=== PATIENT | male | born 1975 | race Caucasian/White ===

== ENCOUNTER 2018-06-22 20:11 | Emergency (ER) | payer MEDICAID ==
[~2018-06-22] VITALS: Ht 180.3 cm; Wt 83.9 kg
[~2018-06-22 20:11] MED LIST: CYCL10 PO; HYDACE5325 PO; IBUP600 PO; IBUP800 PO; METPRE4DP PO
[2018-06-22 21:09] LABS: BASOPHILS ABSOLUTE AUTO 0.05 K/mm3 (0.00-0.23); BASOPHILS PERCENT AUTO 1 % (0-2); EOSINOPHILS ABSOLUTE AUTO 0.34 K/mm3 (0.00-0.68); EOSINOPHILS PERCENT AUTO 3 % (0-6); Hemoglobin 15.3 g/dL (13.5-17.5); IMMATURE GRAN ABSOLUTE AUTO 0.02 K/mm3 (0.00-0.10); IMMATURE GRAN PERCENT AUTO 0 % (0-1); LYMPHOCYTES PERCENT AUTO 18 % (21-46); MONOCYTES ABSOLUTE AUTO 1.07 K/mm3 (0.16-1.47); MONOCYTES PERCENT AUTO 10 % (4-13); Mean Corpuscular HGB 32.4 pg (26.0-34.0); Mean Corpuscular HGB Conc 33.3 g/dL (31.5-36.5); Mean Corpuscular Volume 98 fL (80-100); Mean Platelet Volume 9.1 fL (9.1-12.4); NEUTROPHILS ABSOLUTE AUTO 6.96 K/mm3 (1.96-9.15); NEUTROPHILS PERCENT AUTO 68 % (41-73); Platelet Count 321 K/mm3 (150-400); RDW Coefficient Variation 12.3 % (11.7-14.2); RDW Standard Deviation 44.4 fL (35.1-46.3); Red Blood Cell Count 4.72 M/mm3 (4.30-5.90); White Blood Cell Count 10.24 K/mm3 (4.00-11.30)
[2018-06-22 21:27] LABS: Alanine Aminotransfer (ALT/SGP 20 U/L (12-78); Albumin, Blood 3.6 g/dL (3.4-5.0); Albumin/Globulin Ratio 0.9 (0.8-1.8); Alk Phos 112 U/L (50-136); Anion Gap 8 mmol/L (6-16); Aspartate Aminotrans (AST/SGOT 14 U/L (12-37); Bilirubin, Total 0.4 mg/dL (0.1-1.0); Blood Urea Nitrogen 10 mg/dL (8-24); Bun/Creatinine Ratio 11.9 (12.0-20.0); CO2, Blood 29 mmol/L (21-32); Calcium, Blood 8.6 mg/dL (8.5-10.1); Chloride, Blood 102 mmol/L (98-108); Creatinine, Blood 0.84 mg/dL (0.60-1.20); Globulin, Blood 3.8 g/dL (2.2-4.0); Glomerular Filtration Rate >60 (60-); Glucose, Blood 80 mg/dL (70-99); Potassium, Blood 3.8 mmol/L (3.5-5.5); Sodium, Blood 139 mmol/L (136-145); Total Protein, Blood 7.4 g/dL (6.4-8.2)
[2018-06-22] MEDS ORDERED: Norco 7.5-3251 EACH PO (23:29)
== END 2018-06-23 02:22 | disposition home or self-care (01) ==
LOC: ER 20:11
PROVIDERS: Physician Assistant
DX: C44.629 Squamous cell carcinoma of skin of left upper limb, including shoulder (principal); F17.200 Nicotine dependence, unspecified, uncomplicated
CPT/HCPCS: 36415; 80053; 83605; 85025; 96365; 96366; 96375; 99283-25; J3010; J3370; J7050

== ENCOUNTER → 2018-07-02 | Outpatient (CLI) | payer SELFPAY ==
[~2018-07-02] MED LIST changes: +Norco 7.5-3251 EACH PO
== END ==
LOC: LAB SHORT 11:44 → PLD 11:44
DX: M99.87 Other biomechanical lesions of upper extremity (principal)
CPT/HCPCS: 88305

== ENCOUNTER 2019-11-30 18:37 | Inpatient (IN) | payer SELFPAY ==
[~2019-11-30] VITALS: Ht 180.3 cm; Wt 76.9 kg
[2019-11-30] MEDS ORDERED: ERIVEDGE150 MG PO (18:52)
--- NOTE | 2019-11-30 19:31 | NUR ---
REPORT RECEIVED FROM LISS BARNEY IN ED
[2019-11-30 19:51] LABS: Hematocrit 46.2 % (37.0-53.0); Hemoglobin 15.5 g/dL (13.5-17.5); Mean Corpuscular HGB 32.2 pg (26.0-34.0); Mean Corpuscular HGB Conc 33.5 g/dL (31.5-36.5); Mean Corpuscular Volume 96 fL (80-100); Mean Platelet Volume 10.2 fL (9.1-12.4); Platelet Count 398 K/mm3 (150-400); RDW Coefficient Variation 12.4 % (11.7-14.2); RDW Standard Deviation 44.4 fL (35.1-46.3); Red Blood Cell Count 4.81 M/mm3 (4.30-5.90); White Blood Cell Count 12.11 K/mm3 (4.00-11.30)
[2019-11-30 20:06] LABS: LDL/HDL RATIO 2.5; Magnesium, Blood 2.5 mg/dL (1.6-2.4); Troponin I 0.326 ng/mL (0.000-0.040)
[2019-11-30 20:07] LABS: Alanine Aminotransfer (ALT/SGP 26 U/L (12-78); Albumin, Blood 3.9 g/dL (3.4-5.0); Alk Phos 100 U/L (50-136); Anion Gap 9 mmol/L (6-16); Aspartate Aminotrans (AST/SGOT 20 U/L (12-37); Bilirubin, Total 0.3 mg/dL (0.1-1.0); Blood Urea Nitrogen 14 mg/dL (8-24); Bun/Creatinine Ratio 9.8 (12.0-20.0); CHOL/HDL RATIO 4.3; CO2, Blood 23 mmol/L (21-32); Calcium, Blood 9.1 mg/dL (8.5-10.1); Chloride, Blood 106 mmol/L (98-108); Cholesterol 205 mg/dL (50-200); Creatinine, Blood 1.43 mg/dL (0.60-1.20); Globulin, Blood 3.8 g/dL (2.2-4.0); Glomerular Filtration Rate 57 (60-); Glucose, Blood 162 mg/dL (70-99); HDL Cholesterol 48 mg/dL (>39); Low Density Lipoprotein Chol 120 mg/dL (0-110); Potassium, Blood 3.9 mmol/L (3.5-5.5); Sodium, Blood 138 mmol/L (136-145); Total Protein, Blood 7.7 g/dL (6.4-8.2); Triglycerides 184 mg/dL (30-160); Very Low Density Lipoprot Chol 36 mg/dL (6-32)
--- NOTE | 2019-11-30 20:53 | NUR ---
DR. LEON NOTIFIED DR. LEON NOTIFIED THAT PT ADMITS TO USING METH PRIOR TO HIS HEART ATTACK AND THAT HE DRINKS 6 BEERS/DAY.
--- NOTE | 2019-11-30 21:18 | NUR ---
ASSUMPTION OF CARE: PT UP TO ICU 14 FROM [facility]. ALERT AND ORIENTED. 2 STENTS PLACED FOLLOWING STEMI. TR BAND IN PLACE ON R WRIST. PULSES STRONG, NO PAIN, SENSATION INTACT, NO HEMATOMA PRESENT. PT HAD EPISODE IN [facility] OF VTACH/VFIB AND WAS SHOCKED. VS CURRENTLY STABLE. SBP IN THE 130S,HR IN THE 80-90S. LUNG SOUNDS CLEAR, SPO2 >90% ON RA. URINATING ON OWN INTO URINAL. BILAT 18G AC IVS. INFUSING WITH NS AT 75MLS/HR AND AMIO AT 33 MLS/HR. PT REPORTS DRINKING 6 BEERS A DAY AND OCC METH USE. REPORTS LAST DRINK WAS RIGHT BEFORE COMING INTO HOSPITAL AND LAST METH USE WAS TODAY. DR LEON AWARE. AWAITING URINE SAMPLE FOR U-TOX. WILL CONTINUE TO MONITOR.
[2019-12-01 00:52] LABS: BASOPHILS ABSOLUTE AUTO 0.06 K/mm3 (0.00-0.23); BASOPHILS PERCENT AUTO 0 % (0-2); EOSINOPHILS ABSOLUTE AUTO 0.25 K/mm3 (0.00-0.68); EOSINOPHILS PERCENT AUTO 2 % (0-6); Hematocrit 44.7 % (37.0-53.0); Hemoglobin 14.9 g/dL (13.5-17.5); IMMATURE GRAN ABSOLUTE AUTO 0.03 K/mm3 (0.00-0.10); IMMATURE GRAN PERCENT AUTO 0 % (0-1); LYMPHOCYTES ABSOLUTE AUTO 2.57 K/mm3 (0.84-5.20); LYMPHOCYTES PERCENT AUTO 19 % (21-46); MONOCYTES ABSOLUTE AUTO 1.09 K/mm3 (0.16-1.47); MONOCYTES PERCENT AUTO 8 % (4-13); Mean Corpuscular HGB 32.3 pg (26.0-34.0); Mean Corpuscular HGB Conc 33.3 g/dL (31.5-36.5); Mean Corpuscular Volume 97 fL (80-100); Mean Platelet Volume 9.6 fL (9.1-12.4); NEUTROPHILS PERCENT AUTO 71 % (41-73); Platelet Count 306 K/mm3 (150-400); RDW Coefficient Variation 12.6 % (11.7-14.2); RDW Standard Deviation 45.2 fL (35.1-46.3); Red Blood Cell Count 4.61 M/mm3 (4.30-5.90)
[2019-12-01 01:19] LABS: Anion Gap 3 mmol/L (6-16); Blood Urea Nitrogen 13 mg/dL (8-24); Bun/Creatinine Ratio 12.9 (12.0-20.0); CO2, Blood 29 mmol/L (21-32); CPK Creatine Kinase 180 U/L (39-308); Calcium, Blood 8.8 mg/dL (8.5-10.1); Chloride, Blood 107 mmol/L (98-108); Creatine Kinase MB 13.3 ng/mL (0.0-3.6); Creatine Kinase MB Index 7.4 (0.0-4.0); Creatinine, Blood 1.01 mg/dL (0.60-1.20); Glomerular Filtration Rate >60 (60-); Glucose, Blood 116 mg/dL (70-99); Potassium, Blood 4.9 mmol/L (3.5-5.5); Sodium, Blood 139 mmol/L (136-145)
--- NOTE | 2019-12-01 02:37 | NUR ---
AMIO INFUSION DROPPED FROM 33.3MLS/HR TO 16.6MLS/HR.
--- NOTE | 2019-12-01 05:57 | NUR ---
TR BAND OFF AT 0545. NO HEMATOMA, NO BLEEDING, SENSATION INTACT, CAP REFILL <3 SEC, PULSE STRONG. R RADIAL COVERED WITH OPSITE. WILL CONTINUE TO MONITOR
--- NOTE | 2019-12-01 06:15 | NUR ---
SHIFT SUMMARY: NO ACUTE CHANGES T/O SHIFT. PT IN SR WITH SOME ST ELEVATIONS. HR IN THE 60S,SBP IN THE 130-140. PT IS A&O. DID NOT HAVE ANY COMPLAINTS T/O SHIFT. REMIANED ON RA WITH SPO2 >90%. R RADIAL ACCESS SITE IS C/D. TR BAND OFF AT 0545. ARM BOARD REMAINS IN PLACE. SEE PREVIOUS NOTE. PT IS AMBULATING TO COMMODE AND VOIDING ON OWN. 2 18G IVS IN [facility] AC. AMIODORONE IS INFUSING AT 16.6MLS/HR AND NS AT 75MLS/HR. WILL PASS REPORT TO ONCOMING LISS
--- NOTE | 2019-12-01 07:31 | NUR ---
ASSUMED CARE PT. ALERT AND ORIENTED THIS AM. ABLE TO REPOSITION SELF IN BED FOR COMFORT AND UP AD DANTE IN ROOM. PT. DENIES ANY CHEST PAIN OR PRESSURE THIS AM. TR BAND OFF PER MACHINE STAPLER RN AT 0545. CLEAR OPSITE IN PLACE, SITE WNL, NO HEMATOMA NO BLEEDING. ARM BOARD REMAINS IN PLACE AND ADDITIONAL INFORMATION PROVIDED REGARDING USE OF RIGHT ARM. PT VSS THIS AM. REMAINS ON AMIO GTT AT 05MG/MIN. NADN. CALL LIGHT IN REACH.
--- NOTE | 2019-12-01 08:13 | NUR ---
DR. LEON IN TO SEE PT PER ORDER AMIO GTT AND NS GTT STOPPED. PER DR. LEON DO NOT DC ORDER FOR AMIO AT THIS TIME, CONTINUE TO MONITOR PT FOR ECTOPY AND IF PT HAS INCREASED ECTOPY THEN AMIO GTT TO RESTART. PLANS FOR ECHO TODAY, AND POSSIBLE DC TO HOME DEPENDING ON ECHO RESULTS. VSS.
[2019-12-01 08:44] LABS: Creatine Kinase MB 25.3 ng/mL (0.0-3.6); Creatine Kinase MB Index 9.2 (0.0-4.0)
[2019-12-01 08:48] LABS: Troponin I 7.27 ng/mL (0.000-0.040)
[2019-12-01 13:40] LABS: Creatine Kinase MB 21.2 ng/mL (0.0-3.6); Creatine Kinase MB Index 8.4 (0.0-4.0)
[2019-12-01 13:59] LABS: Troponin I 5.28 ng/mL (0.000-0.040)
--- NOTE | 2019-12-01 16:23 | NUR ---
UPDATE PER DR. LEON PT TO STAY FOR TONIGHT AND BE DISCHARGED IN THE AM. PT FAMILY UPDATED. PT. REMAINS ALERT AND ORIENTED T/O DAY. CONTINUES TO DENY CHEST PAIN OR PRESSURE. SLEEPING MOST OF THE DAY. VSS, INDEPENDENT IN ROOM.
--- NOTE | 2019-12-01 17:01 | NUR ---
Care of pt assumed. Pt resting in bed w/o complaints watching tv.
--- NOTE | 2019-12-01 19:49 | NUR ---
ASSUMPTION OF CARE: PT CURRENTLY SLEEPING IN ROOM. ABLE TO AWAKE EASILY. PT HAS NO COMPLAINTS AT THIS TIME. IS SR, HR 60-80S, SBP IN THE 120S. OPSITE TO R RADIAL ACCESS IS C/D/I. PULSE IS STRONG. NO HEMATOMA, NO OOZING. LUNG SOUNDS CLEAR, SPO2 >90% ON RA. PT INDEPENDENT IN ROOM. ATE ALL OF DINNER. TWO IVS IN BILAT ACS. PATENT AND SL. WILL CONTINUE TO MONITOR
[2019-12-01 21:30] LABS: Creatine Kinase MB 10.8 ng/mL (0.0-3.6)
[2019-12-01 21:34] LABS: Troponin I 3.53 ng/mL (0.000-0.040)
--- NOTE | 2019-12-02 05:44 | NUR ---
SHIFT SUMMARY: NO ACUTE CHANGES T/O SHIFT. PT SLEPT MAJORITY OF SHIFT. VSS. R RADIAL ACCESS SITE DRESSING IS C/D/I. ARM BOARD REMAINS IN PLACE. WILL PASS REPORT TO ONCOMING SHIFT
[2019-12-02 05:57] LABS: Creatine Kinase MB Index 4.1 (0.0-4.0)
[2019-12-02 05:59] LABS: Troponin I 2.8 ng/mL (0.000-0.040)
[2019-12-02] MEDS ORDERED: ASPI81CH PO (08:09)
[2019-12-02] MEDS ORDERED: ATORVASTATIN CA40 MG PO (08:10)
[2019-12-02] MEDS ORDERED: CLOP75 PO (08:11)
[2019-12-02] MEDS ORDERED: LISI5 PO (08:11)
--- NOTE | 2019-12-02 09:34 | NUR ---
PT ASSESSED THIS AM AT 0720. PT AWAKE SITTING UP IN BED. PT DENIES ALL COMPLAINTS. DENIES CHEST PAIN/PRESSURE/SOB/NAUSEA. ORDERS WHERE PLACED BY DR Grace FOR PT TO BE DISCHARGED HOME. R TR BAND SITE WITH OPSITE C/D/I. AREA WNL. WRIST IMMOBILIZER ON. RX'S FAXED INTO [facility]. PT EDUCATED ON IMPORTANCE OF CONTINUING PLAVIX/ASA ORDERED. PT TO CALL DR IF HE HAS ANY DIFFICULTY OBTAINING MEDICATIONS. PT DC'D HOME IN STABLE CONDITION AT 0830. VERBAL AND WRITTEN DC INSTRUCTIONS GIVEN TO PT WITH CLEAR UNDERSTANDING.
== END 2019-12-02 08:32 | disposition home or self-care (01) | DRG 246 ==
LOC: ER 18:37 → ICUW 18:44
PROVIDERS: Emergency Medicine; ADMIT Internal Medicine Interventional Cardiology
PROC: 4A023N7 Measurement of Cardiac Sampling and Pressure, Left Heart, Percutaneous Approach (ICD-10-PCS; principal; 2019-11-30)
PROC: 027035Z Dilation of Coronary Artery, One Artery with Two Drug-eluting Intraluminal Devices, Percutaneous Approach (ICD-10-PCS; 2019-11-30)
PROC: B2111ZZ Fluoroscopy of Multiple Coronary Arteries using Low Osmolar Contrast (ICD-10-PCS; 2019-11-30)
DX: I21.09 ST elevation (STEMI) myocardial infarction involving other coronary artery of anterior wall (principal); I49.01 Ventricular fibrillation; F17.210 Nicotine dependence, cigarettes, uncomplicated; F19.21 Other psychoactive substance dependence, in remission; F10.21 Alcohol dependence, in remission; Z85.89 Personal history of malignant neoplasm of other organs and systems; E78.5 Hyperlipidemia, unspecified; R73.9 Hyperglycemia, unspecified; N18.9 Chronic kidney disease, unspecified
CPT/HCPCS: 36415; 80048; 80053; 80061; 82550; 82553; 83036; 83735; 84484; 85025; 85027; 85347; 86850; 86900; 86901; 92973; 92978; 93005; 93010; 93306; 93458; 99152; 99153; 99285-25; A9270-GY; C1725; C1753; C1757; C1769; C1874; C1887; C1894; C9606; J0282; J1644; J2250; J3010; J3246; J7030; Q9967

== ENCOUNTER 2020-02-11 01:43 | Inpatient (IN) | payer SELFPAY ==
[~2020-02-11] VITALS: Ht 182.9 cm; Wt 80.9 kg
[2020-02-11 02:01] LABS: BASOPHILS ABSOLUTE AUTO 0.03 K/mm3 (0.00-0.23); BASOPHILS PERCENT AUTO 1 % (0-2); EOSINOPHILS ABSOLUTE AUTO 0.18 K/mm3 (0.00-0.68); EOSINOPHILS PERCENT AUTO 3 % (0-6); Hematocrit 37.1 % (37.0-53.0); Hemoglobin 11.8 g/dL (13.5-17.5); IMMATURE GRAN ABSOLUTE AUTO 0.11 K/mm3 (0.00-0.10); IMMATURE GRAN PERCENT AUTO 2 % (0-1); LYMPHOCYTES ABSOLUTE AUTO 4.93 K/mm3 (0.84-5.20); LYMPHOCYTES PERCENT AUTO 75 % (21-46); MONOCYTES PERCENT AUTO 6 % (4-13); Mean Corpuscular HGB Conc 31.8 g/dL (31.5-36.5); Mean Corpuscular Volume 104 fL (80-100); Mean Platelet Volume 9.8 fL (9.1-12.4); NEUTROPHILS PERCENT AUTO 14 % (41-73); Platelet Count 228 K/mm3 (150-400); RDW Coefficient Variation 12.2 % (11.7-14.2); RDW Standard Deviation 46.6 fL (35.1-46.3); Red Blood Cell Count 3.58 M/mm3 (4.30-5.90); White Blood Cell Count 6.55 K/mm3 (4.00-11.30)
[2020-02-11 02:01] LABS: PCO2 Arterial 61.3 mmHg (35-45); PO2 Arterial 91.7 mmHg (80-100); pH Blood Arterial 7.04 (7.35-7.45)
[2020-02-11 02:05] LABS: Calcium, Ionized (POC) 1.17 mmol/L (1.10-1.46); Chloride (POC) 99 mmol/L (98-108); Creatinine (POC) 1.1 mg/dL (0.8-1.3); Glucose (ISTAT POC) 343 mg/dL (70-99); Hemoglobin (POC) 11.9 g/dL (13.5-17.5); Potassium (POC) 3.4 mmol/L (3.5-5.5); Sodium (POC) 137 mmol/L (135-148); Total CO2 (POC) 20 mmol/L (21-32)
[2020-02-11 02:21] LABS: Acetaminophen, Random 3.9 ug/mL (10.0-30.0); Alanine Aminotransfer (ALT/SGP 197 U/L (12-78); Albumin, Blood 2.6 g/dL (3.4-5.0); Alk Phos 85 U/L (50-136); Anion Gap 15 mmol/L (6-16); Aspartate Aminotrans (AST/SGOT 281 U/L (12-37); Bilirubin, Total 0.3 mg/dL (0.1-1.0); Blood Urea Nitrogen 15 mg/dL (8-24); Bun/Creatinine Ratio 14.2 (12.0-20.0); CO2, Blood 17 mmol/L (21-32); Calcium, Blood 7.5 mg/dL (8.5-10.1); Chloride, Blood 106 mmol/L (98-108); Creatinine, Blood 1.06 mg/dL (0.60-1.20); Globulin, Blood 2.7 g/dL (2.2-4.0); Glomerular Filtration Rate >60 (60-); Glucose, Blood 300 mg/dL (70-99); Potassium, Blood 3.8 mmol/L (3.5-5.5); Salicylate 1.9 mg/dL (2.8-20.0); Sodium, Blood 138 mmol/L (136-145); Total Protein, Blood 5.3 g/dL (6.4-8.2); Troponin I 0.064 ng/mL (0.000-0.040)
[2020-02-11 02:31] LABS: Ethanol (Alcohol), Blood, Med <3 mg/dL
[2020-02-11 02:32] LABS: Magnesium, Blood 2.3 mg/dL (1.6-2.4)
[2020-02-11 02:33] LABS: Source, Urine Clean Catch
[2020-02-11 02:42] LABS: Bilirubin, Urine Neg (Neg); Blood, Urine 5+ (Neg); Glucose Qualitative, Urine 4+ (Neg); Ketones, Urine Neg (Neg); Leukocyte Esterase, Urine Neg (Neg); Nitrite, Urine Neg (Neg); Protein, Urine 4+ (Neg); Specific Gravity, Urine 1.015 (1.003-1.022); Urobilinogen, Urine NORM (Normal)
[2020-02-11 02:47] LABS: Appearance, Urine Hazy (Clear); Color, Urine Yellow (P-Yellow)
[2020-02-11 02:48] LABS: Amorphous Mod (0-Heavy); Bacteria Few /hpf; Red Blood Cells, Urine 50-100 /hpf (0-2); Squamous Epithelial Cells Few /hpf (Few); White Blood Cells, Urine 0-2 /hpf (0-5)
[2020-02-11 02:52] LABS: U Amphetamine Screen DETECTED; U Barbituate Screen Not Detected; U Benzodiazapine Screen Not Detected; U Buprenorphine Screen Not Detected; U Cannabinoids Screen Not Detected; U Cocaine Screen Not Detected; U Methadone Screen Not Detected; U Methamphetamine Screen DETECTED; U Opiates Screen Not Detected; U Oxycodone Screen Not Detected; U Phencyclidine Screen Not Detected; U Propoxyphene Screen Not Detected
[2020-02-11 06:48] LABS: BASOPHILS ABSOLUTE AUTO 0.04 K/mm3 (0.00-0.23); BASOPHILS PERCENT AUTO 0 % (0-2); EOSINOPHILS ABSOLUTE AUTO 0.04 K/mm3 (0.00-0.68); EOSINOPHILS PERCENT AUTO 0 % (0-6); Hematocrit 41.3 % (37.0-53.0); Hemoglobin 13.8 g/dL (13.5-17.5); IMMATURE GRAN ABSOLUTE AUTO 0.13 K/mm3 (0.00-0.10); IMMATURE GRAN PERCENT AUTO 1 % (0-1); LYMPHOCYTES ABSOLUTE AUTO 1.84 K/mm3 (0.84-5.20); LYMPHOCYTES PERCENT AUTO 8 % (21-46); MONOCYTES PERCENT AUTO 8 % (4-13); Mean Corpuscular HGB 32.7 pg (26.0-34.0); Mean Corpuscular HGB Conc 33.4 g/dL (31.5-36.5); Mean Platelet Volume 9.5 fL (9.1-12.4); NEUTROPHILS ABSOLUTE AUTO 18.89 K/mm3 (1.96-9.15); NEUTROPHILS PERCENT AUTO 83 % (41-73); Platelet Count 324 K/mm3 (150-400); RDW Coefficient Variation 12.2 % (11.7-14.2); RDW Standard Deviation 44.2 fL (35.1-46.3); Red Blood Cell Count 4.22 M/mm3 (4.30-5.90); White Blood Cell Count 22.64 K/mm3 (4.00-11.30)
--- NOTE | 2020-02-11 07:00 | NUR ---
CARE ASSUMED 0700 PT INTUBATED AND SEDATED. PROPOFOL @ 60 INFUSING IN LEFT FOREARM. AC 14,500,50%, 5, SPO2 97%. LUNGS ARE CLEAR BILATERALLY. PT RESPONDS TO NOXIOUS STIMULI, SCOTT. VITAL STABLE. BODY TEMP 34.1. PT RECEIVING COOLING MEASURES WITH THERMAGUARD WITH GOAL TEMPERATURE OF 34.0. VIA RIGHT GROIN COOLING CATH. TR BAND TO RIGHT RADIAL SITE, WNL, REMOVING PER PROTOCOL. SCD'S IN PLACE. DR. ZAYAS IN TO SEE PATIENT AND WOULD LIKE TO DC NS. ALSO, VENT SETTINGS CHANGED TO AC 16/500/40%/5. PLEASE SEE ASSESSMENT FOR FURTHER DETAILS.
[2020-02-11 07:03] LABS: International Normalized Ratio 1.03
[2020-02-11 07:07] LABS: Alanine Aminotransfer (ALT/SGP 304 U/L (12-78); Albumin, Blood 3.4 g/dL (3.4-5.0); Alk Phos 127 U/L (50-136); Anion Gap 6 mmol/L (6-16); Aspartate Aminotrans (AST/SGOT 518 U/L (12-37); Bilirubin, Total 0.9 mg/dL (0.1-1.0); Blood Urea Nitrogen 19 mg/dL (8-24); Bun/Creatinine Ratio 16.1 (12.0-20.0); CO2, Blood 26 mmol/L (21-32); Chloride, Blood 107 mmol/L (98-108); Creatinine, Blood 1.18 mg/dL (0.60-1.20); Globulin, Blood 3.4 g/dL (2.2-4.0); Glomerular Filtration Rate >60 (60-); Glucose, Blood 119 mg/dL (70-99); Potassium, Blood 4.1 mmol/L (3.5-5.5); Sodium, Blood 139 mmol/L (136-145); Total Protein, Blood 6.8 g/dL (6.4-8.2)
[2020-02-11 07:15] LABS: Mean Corpuscular Volume 98 fL (80-100)
--- NOTE | 2020-02-11 07:32 | NUR ---
SHIFT SUMMARY PATIENT ARRIVED TO ICU ~ 03:52 FROM CAMPUS RECEPTIONIST. PER REPORT, CORONARY ARTERIES WERE CLEAR OR UNREMARKABLE, ARREST LIKELY DUE TO METH CONSUMPTION. PT. WAS CONNECTED TO ZOLL THERMOGARD IMMEDIATELY AND INITIATED COOLING PROCEDURE. TARGET TEMPERATURE OF 34 CELCIUS WAS ACHIEVED @ 04:50. PT. INITIALLY WAS A LITTLE SQUIRMY, SOME DRAINAGE WAS NOTED AROUND CENTRAL LINE INSERTION SITE IN RIGHT GROIN, OLAF DRESSING ALREADY IN PLACE FROM CAMPUS RECEPTIONIST. INCREASED PROPOFOL DRIP, RESTLESSNES WAS DECREASED. SCDs WERE PLACED. DID GIVE 1 DOSE OF DEMEROL TO HELP WITH SHIVERING. NO ECTOPY HAS BEEN NOTED. ASSESSMENT IS CHARTED. VSS. IT HAS BEEN A PLEASURE TAKING CARE OF THIS PATIENT.
--- NOTE | 2020-02-11 07:37 | NUR ---
TR BAND INFLATED WITH 10 ML AIR INITIALLY. 0630 - 2ML AIR, 8 LEFT 0640 - 2ML AIR, 6 LEFT 0650 - 3MG AIR, 3 LEFT
[2020-02-11 08:22] LABS: PO2 Arterial 159 mmHg (80-100); pH Blood Arterial 7.32 (7.35-7.45)
--- NOTE | 2020-02-11 09:03 | NUR ---
Echocardiogram using 0.50ml of Definity contrast performed.
[2020-02-11 18:19] LABS: BASOPHILS ABSOLUTE AUTO 0.02 K/mm3 (0.00-0.23); BASOPHILS PERCENT AUTO 0 % (0-2); EOSINOPHILS ABSOLUTE AUTO 0.06 K/mm3 (0.00-0.68); EOSINOPHILS PERCENT AUTO 0 % (0-6); Hematocrit 40.1 % (37.0-53.0); Hemoglobin 13.4 g/dL (13.5-17.5); IMMATURE GRAN ABSOLUTE AUTO 0.07 K/mm3 (0.00-0.10); IMMATURE GRAN PERCENT AUTO 0 % (0-1); LYMPHOCYTES ABSOLUTE AUTO 1.41 K/mm3 (0.84-5.20); LYMPHOCYTES PERCENT AUTO 9 % (21-46); MONOCYTES ABSOLUTE AUTO 1.08 K/mm3 (0.16-1.47); MONOCYTES PERCENT AUTO 7 % (4-13); Mean Corpuscular HGB Conc 33.4 g/dL (31.5-36.5); Mean Corpuscular Volume 99 fL (80-100); Mean Platelet Volume 9.7 fL (9.1-12.4); NEUTROPHILS PERCENT AUTO 83 % (41-73); Platelet Count 282 K/mm3 (150-400); RDW Coefficient Variation 12.4 % (11.7-14.2); RDW Standard Deviation 45.5 fL (35.1-46.3); Red Blood Cell Count 4.06 M/mm3 (4.30-5.90); White Blood Cell Count 15.64 K/mm3 (4.00-11.30)
[2020-02-11 18:33] LABS: Alanine Aminotransfer (ALT/SGP 274 U/L (12-78); Albumin, Blood 3.2 g/dL (3.4-5.0); Albumin/Globulin Ratio 1.1 (0.8-1.8); Alk Phos 106 U/L (50-136); Anion Gap 8 mmol/L (6-16); Aspartate Aminotrans (AST/SGOT 415 U/L (12-37); Bilirubin, Total 0.9 mg/dL (0.1-1.0); Blood Urea Nitrogen 22 mg/dL (8-24); Bun/Creatinine Ratio 19.6 (12.0-20.0); CO2, Blood 26 mmol/L (21-32); Calcium, Blood 8.5 mg/dL (8.5-10.1); Chloride, Blood 104 mmol/L (98-108); Creatinine, Blood 1.12 mg/dL (0.60-1.20); Glomerular Filtration Rate >60 (60-); Glucose, Blood 110 mg/dL (70-99); Sodium, Blood 138 mmol/L (136-145); Total Protein, Blood 6.2 g/dL (6.4-8.2)
--- NOTE | 2020-02-11 18:43 | NUR ---
SHIFT SUMMARY PT INTUBATED AND SEDATED, ON PROPOFOL @ 60. AC 16/500/30%/5. SPO2 97-100%. PTS MAP >65, PT STILL IN NSR WITH OCCASSIONAL ECTOPY AND NO EPISODES OF VFIB. NO SEDATION VACTION PER DR. HAIR DUE TO COOLING MEASURES. NEURO STATUS UNCHANGED. PT WAS SHIVERING AND DEMORAL WAS GIVEN WITH GOOD EFFECT. COOLING MEASURES CONTINUE, PTS TEMPERATURES WITHIN TARGET RANGE T/O SHIFT. GROIN SITE UNCHANGED AND RIGHT RADIAL ACCESS WNL.
[2020-02-11 18:55] LABS: International Normalized Ratio 1.01; Prothrombin Time Results 10.8 Sec (9.7-11.5)
[2020-02-12 04:23] LABS: International Normalized Ratio 0.97; Prothrombin Time Results 10.4 Sec (9.7-11.5)
--- NOTE | 2020-02-12 05:38 | NUR ---
SHIFT SUMMARY AROUND 01:30 NOTICABLY-ELEVATED ST SEGMENT, OBTAINED TROPONIN, =81.1. INFORMED DR. LANDIN, PER PHYSICIAN GIVE ASPIRIN, BRILINTA, AND START HEPARIN DRIP. WILL RECHECK TROPONIN ~ 06:00 WITH MORNING LABS, EKG AGAIN WHEN PT. REACHES GOAL TEMPERATURE. @ 04:40 STARTED REWARMING PATIENT 1 DEGREE FARENHEIT PER HOUR. AT START OF WARMING WAS 93.3 FARENHEIT. RECTAL TUBE INSERTED AT BEGIN OF SHIFT, DRAINAGE NOTED. ASSESSMENT IS CHARTED. VSS. WILL CONTINUE TO MONITOR.
[2020-02-12 06:13] LABS: BASOPHILS ABSOLUTE AUTO 0.02 K/mm3 (0.00-0.23); BASOPHILS PERCENT AUTO 0 % (0-2); EOSINOPHILS ABSOLUTE AUTO 0.06 K/mm3 (0.00-0.68); EOSINOPHILS PERCENT AUTO 0 % (0-6); Hematocrit 36.9 % (37.0-53.0); Hemoglobin 12.3 g/dL (13.5-17.5); IMMATURE GRAN ABSOLUTE AUTO 0.04 K/mm3 (0.00-0.10); IMMATURE GRAN PERCENT AUTO 0 % (0-1); LYMPHOCYTES PERCENT AUTO 8 % (21-46); MONOCYTES ABSOLUTE AUTO 0.92 K/mm3 (0.16-1.47); MONOCYTES PERCENT AUTO 7 % (4-13); Mean Corpuscular HGB 32.4 pg (26.0-34.0); Mean Corpuscular HGB Conc 33.3 g/dL (31.5-36.5); Mean Corpuscular Volume 97 fL (80-100); Mean Platelet Volume 10.1 fL (9.1-12.4); NEUTROPHILS ABSOLUTE AUTO 11.82 K/mm3 (1.96-9.15); NEUTROPHILS PERCENT AUTO 85 % (41-73); Platelet Count 231 K/mm3 (150-400); RDW Coefficient Variation 12.5 % (11.7-14.2); RDW Standard Deviation 44.5 fL (35.1-46.3); White Blood Cell Count 13.96 K/mm3 (4.00-11.30)
[2020-02-12 06:48] LABS: Alanine Aminotransfer (ALT/SGP 271 U/L (12-78); Albumin, Blood 2.9 g/dL (3.4-5.0); Alk Phos 107 U/L (50-136); Anion Gap 6 mmol/L (6-16); Aspartate Aminotrans (AST/SGOT 626 U/L (12-37); Blood Urea Nitrogen 22 mg/dL (8-24); Bun/Creatinine Ratio 22.5 (12.0-20.0); CO2, Blood 26 mmol/L (21-32); Calcium, Blood 8.1 mg/dL (8.5-10.1); Chloride, Blood 105 mmol/L (98-108); Creatinine, Blood 0.98 mg/dL (0.60-1.20); Glomerular Filtration Rate >60 (60-); Glucose, Blood 108 mg/dL (70-99); Potassium, Blood 3.9 mmol/L (3.5-5.5); Sodium, Blood 137 mmol/L (136-145); Total Protein, Blood 5.9 g/dL (6.4-8.2)
--- NOTE | 2020-02-12 09:44 | NUR ---
CARE ASSUMED ASSESSMENT COMPLETED, VENT SETTINGS AC 16, Vt 500, PEEP 5, FIO2 25%, SPO2 99%, RR 16. LS CLEAR, NO SPUTUM FROM ETT AT THIS TIME. HR 80'S-90'S SINUS WITH ST ELEVATION, TROPONIN CONTINUES TO RISE, DR. TELLEZ AWARE, NEW ORDERS RECEIVED. PT SEDATED WITH PROPOFOL 60MCG/KG/MIN, GRIMACES TO NOXIOUS STIMULI, SCOTT, DOES NOT FOLLOW COMMANDS. REWARMING IN PROGRESS PER PROTOCOL, NO SHIVERING NOTED. MOTTLING NOTED TO BLE'S FROM FEET TO KNEES, SKIN REMAINS COOL TO TOUCH. COOLING CATH TO R GROIN, R RADIAL ANGIO ACCESS SITE, BOTH SITES WNL, DRESSINGS CDI. RECTAL TUBE AND GARCIA IN PLACE, PATENT AND DRAINING TO GRAVITY.
--- NOTE | 2020-02-12 10:25 | NUR ---
SEDATION VACATION DR. HAIR AT BEDSIDE AT 0950, PT'S TEMPERATURE 98.4 AT THIS TIME. PROPOFOL SHUT OFF, VENT SETTINGS CHANGED TO SPONTANEOUS MODE WITH PS 5/5, FIO2 30% BY DR. HAIR. PT ALMOST IMMEDIATELY BECAME ROUSABLE, MOVES ALL EXTREMS, WAS ATTEMPTING TO SIT UP. VERBALLY REDIRECTED, PT THEN CALMED AND WAS ABLE TO OPEN EYES TO COMMAND AND FOLLOW BASIC DIRECTIONS. FAILED WEAN TRIAL D/T Vt 200-300 AND DESAT TO 85%. RESUMED AC SETTINGS WITH FIO2 INCREASED TO 30%, PROPOFOL RESUMED. EKG COMPLETED, PT REPOSITIONED, NOW RESTING QUIETLY, VSS.
--- NOTE | 2020-02-12 13:09 | NUR ---
UPDATE HEPARIN GTT HELD FOR 1 HOUR, THEN RESUMED AT 11U/KG/HR PER PHARMACY. PT'S STEP SON IN TO VISIT, REPORTS THAT PT IS A HEAVY BEER DRINKER. DR. HAIR NOTIFIED, PRECEDEX INITIATED AT 0.4MCG/KG/HR. TROPONIN RESULT REVIEVED, DR. PUENTE NOTIFIED. PLANNING FOR CURTAIN ROLLER ASSEMBLER LATER TODAY.
--- NOTE | 2020-02-12 13:22 | NUR ---
PRECEDEX UPDATE PRECEDEX OFF AT THIS TIME PER DR. HAIR IN PREPARATION FOR TIRE ROOM SUPERVISOR.
--- NOTE | 2020-02-12 14:22 | NUR ---
LYRIC WRITER DR. PUENTE IN TO ASSESS PATIENT AND REVIEW LABS AND EKG'S. COOLING/REWARMING DC'D. PT TO LYRIC WRITER AT 1417 WITH RN, RT, AND LYRIC WRITER STAFF.
[2020-02-12 16:33] LABS: Source, Urine Catheter
[2020-02-12 16:44] LABS: Appearance, Urine Hazy (Clear); Bilirubin, Urine Neg (Neg); Blood, Urine 5+ (Neg); Color, Urine Brown (P-Yellow); Glucose Qualitative, Urine Neg (Neg); Ketones, Urine 3+ (Neg); Leukocyte Esterase, Urine 2+ (Neg); Nitrite, Urine Pos (Neg); Protein, Urine 2+ (Neg); Urobilinogen, Urine 1+ (Normal)
[2020-02-12 16:54] LABS: Amorphous Light (0-Heavy); Bacteria Few /hpf; Red Blood Cells, Urine 25-50 /hpf (0-2); Squamous Epithelial Cells Few /hpf (Few)
[2020-02-12 16:55] LABS: Granular Casts 0-2 /lpf (0)
[2020-02-12 16:57] LABS: Hyaline Casts Rare /lpf (0-2); Transitional Epithelial Cells Few /hpf (0-Rare)
--- NOTE | 2020-02-12 16:58 | NUR ---
RETURN FROM DENTAL HYGIENE TEACHER PT RETURNED TO ICU 9 FROM DENTAL HYGIENE TEACHER AT 1535, PROPOFOL INFUSING AT 60MCG, PRECEDEX RESUMED AT 0.4MCG, HEPARIN AT 11U. BP STABLE, HR 90'S SINUS. R RADIUS RE-ACCESSED, TR BAND IN PLACE, SITE WNL, 13ML IN TR BAND AT 1520 PER REPORT. CAP REFILL TO R FINGERS SLUGGISH, GOOD SPO2 WAVEFORM PRESENT. VENT SETTINGS UNCHANGED. PT CALM AT THIS TIME, IS ABLE TO ANSWER YES/NO QUESTIONS, FOLLOWS SIMPLE COMMANDS. RR 17, SPO2 >95%, TEMP 98.7. PT HAS 40ML URINE OUTPUT THIS SHIFT, BLADDER SCAN SHOWS 326ML IN BLADDER. ATTEMPTED TO FLUSH CATH WITH STERILE WATER WITHOUT SUCCESS, CATH REPLACED. 280ML URINE OUT UPON INSERTION. SEDIMENT REMAINS PRESENT IN URINE. PHARMACY NOTIFIED OF HEPARIN ACTIVITY IN DENTAL HYGIENE TEACHER, PTT ORDER REVISED.
--- NOTE | 2020-02-12 18:41 | NUR ---
END OF SHIFT PT RESTING IN BED, ATTEMPTING TO TITRATE PROPOFOL DOWN AND PRECEDEX UP PER DR. HAIR. PT BECAME HYPOTENSIVE BUT WAS ATTEMPTING TO SIT UP IN BED, PRECEDEX DECREASED TO 0.2MCG AND PROPOFOL INCREASED TO 40MCG. OTHER VSS, VENT SETTINGS UNCHANGED SINCE THIS MORNING, FIO2 TO REMAIN AT 30% PER DR. HAIR. TR BAND DEFLATION INITIATED AT 1830 PER PROTOCOL, SITE WNL, NO BLEEDING OR HEMATOMA NOTED. TEMP 99.3 AT THIS TIME, BLANKETS REMOVED. WILL REPORT TO ONCOMING SHIFT.
[2020-02-13 04:23] LABS: BASOPHILS ABSOLUTE AUTO 0.06 K/mm3 (0.00-0.23); BASOPHILS PERCENT AUTO 0 % (0-2); EOSINOPHILS ABSOLUTE AUTO 0.06 K/mm3 (0.00-0.68); EOSINOPHILS PERCENT AUTO 0 % (0-6); Hematocrit 31.6 % (37.0-53.0); Hemoglobin 10.8 g/dL (13.5-17.5); IMMATURE GRAN ABSOLUTE AUTO 0.09 K/mm3 (0.00-0.10); IMMATURE GRAN PERCENT AUTO 1 % (0-1); LYMPHOCYTES ABSOLUTE AUTO 1.75 K/mm3 (0.84-5.20); LYMPHOCYTES PERCENT AUTO 11 % (21-46); MONOCYTES ABSOLUTE AUTO 1.33 K/mm3 (0.16-1.47); MONOCYTES PERCENT AUTO 9 % (4-13); Mean Corpuscular HGB 33.3 pg (26.0-34.0); Mean Corpuscular HGB Conc 34.2 g/dL (31.5-36.5); Mean Corpuscular Volume 98 fL (80-100); Mean Platelet Volume 10.5 fL (9.1-12.4); NEUTROPHILS PERCENT AUTO 79 % (41-73); Platelet Count 241 K/mm3 (150-400); RDW Coefficient Variation 12.5 % (11.7-14.2); RDW Standard Deviation 45.1 fL (35.1-46.3); Red Blood Cell Count 3.24 M/mm3 (4.30-5.90); White Blood Cell Count 15.49 K/mm3 (4.00-11.30)
[2020-02-13 04:43] LABS: Alanine Aminotransfer (ALT/SGP 219 U/L (12-78); Albumin, Blood 2.4 g/dL (3.4-5.0); Albumin/Globulin Ratio 0.8 (0.8-1.8); Alk Phos 124 U/L (50-136); Anion Gap 7 mmol/L (6-16); Aspartate Aminotrans (AST/SGOT 713 U/L (12-37); Bilirubin, Total 0.6 mg/dL (0.1-1.0); Blood Urea Nitrogen 14 mg/dL (8-24); Bun/Creatinine Ratio 13.9 (12.0-20.0); CO2, Blood 26 mmol/L (21-32); Calcium, Blood 7.3 mg/dL (8.5-10.1); Chloride, Blood 103 mmol/L (98-108); Creatinine, Blood 1.01 mg/dL (0.60-1.20); Globulin, Blood 3.2 g/dL (2.2-4.0); Glomerular Filtration Rate >60 (60-); Glucose, Blood 111 mg/dL (70-99); Potassium, Blood 3.2 mmol/L (3.5-5.5); Sodium, Blood 136 mmol/L (136-145); Total Protein, Blood 5.6 g/dL (6.4-8.2)
--- NOTE | 2020-02-13 05:58 | NUR ---
SHFIT SUMMARY PT. HAS BEEN FEBRILE THROUGH NIGHT DESPITE TYLENOL, ICE PACKS, GIVING ATIVAN FOR POTENTIAL WITHDRAWL. BROUGHT UP WITH DR. HAIR, NO ORDER FOR LACTIC ACID. DID START ON LEVOPHED, GAVE 1L LR FOR HYPOTENSION EAWRLIER IN SHIFT. @ 04:50 PLACED PT. ON SPONTANEOUS BREATHING AFTER PUTTING PROPOFOL ON STANDBY, IS DOING WELL; RESPIRATORY RATE ~ 25, TVs ~ 450, L/MIN ~ 11, MAINTAINING SPO2 . 94%, NOT AGGITATED. URINE HAS HAD SEDIMENT OFF AND ON THROUGH NIGHT. ASSESSMENT IS CHARTED. WILL CONTINUE TO MONITOR.
--- NOTE | 2020-02-13 06:10 | NUR ---
TR BAND TR BAND WAS INITIALLY FULLY DEFLATED @ 2040, LEFT ON FOR 2 HOURS CONSIDERING BLOOD THINNERS. VERY SMALL HEMATOMA FORMED BY ABOUT 23:00, ABOUT THE SIZE OF A PEA, IMMEDIATELY REAPPLIED AND REINFLATED TR BAND WITH 10ML. STARTED DEFLATING AGAINT @ 0030 THIS AM, FULLY DEFLATED BY 0230, REMOVED @ 0430, SITE CLEAN, DRY, INTACT, NO SWELLING/DRAINAGE. STRONG PULSE, CAPILARY REFIL ~ 3 SECONDS. WILL CONTINUE TO MONITOR.
--- NOTE | 2020-02-13 07:55 | NUR ---
CARE ASSUMED ASSESSMENT COMPLETED. VENT SETTINGS UNCHANGED, RR 17, SPO2 >95%. PROPOFOL 40MCG, PRECEDEX 0.7MCG, LEVO DECREASED TO 9MCG. HR 90'S SINUS WITH ST ELEVATION. PT RESPONSIVE TO NOXIOUS STIMULI, NOT FOLLOWING COMMANDS AT THIS TIME. TEMP 101.7, ICE PACKS REFRESHED, FAN ON, BLANKETS AND HEAT OFF. GARCIA AND RECTAL TUBE PATENT AND DRAINING TO GRAVITY, OUTPUT FROM OGT INCREASING AND IS DARK BROWN/GREEN IN COLOR. R RADIAL ACCESS SITE WITH SMALL AMOUNT OF LIGHT BRUISING, NO HEMATOMA OR BLEEDING NOTED, SITE SOFT. R GROIN COOL GAURD ACCESS SITE WNL.
--- NOTE | 2020-02-13 12:54 | NUR ---
EXTUBATION DR. HAIR IN TO ASSESS, PROPOFOL OFF, VENT TO PRESSURE SUPPORT MODE 5/5, 30% FIO2. PT ABLE TO FOLLOW DIRECTIONS, CALMS WITH VERBAL REDIRECTION AND INSTRUCTION. VSS WITH LEVO, PT TOLERATED BREATING TRIAL WELL. ORDER FOR EXTUBATION, RT AT BEDSIDE, PT EXTUBATED AT 1139 TO 3L/NC, TOLERATED WELL. RESPIRATIONS TACHYPNIC 30'S BUT SLOWED TO 20'S WITH INSTRUCTION. SPO2 >95%. LS COARSE, PT HAS A MODERATELY STRONG COUGH WITH GABRIEL SPUTUM, ASSISTED WITH ORAL SUCTIONING. PT REMAINS SEDATED ON PRECEDEX AT 1MCG/KG/HR PER DR. HAIR, IS RESTING QUIETLY, VSS. RESTRAINTS AND OGT DC'D WITH EXTUBATION.
--- NOTE | 2020-02-13 18:45 | NUR ---
END OF SHIFT PT HAS TOLERATED EXTUBATION WELL, WAS WEANED TO RA, SPO2 >90%. RESPIRATIONS HAVE SLOWED FROM 30'S TO 20'S, PT CONTINUES TO EXPECTORATE GABRIEL SPUTUM, ASSIST WITH ORAL SUCTIONING PRN. LS CLEAR THIS EVENING. HR 90-[address] SEGMENT, TROPONIN TRENDING DOWN. DR. POMPA IN TO ASSESS THIS AFTERNOON, NO NEW ORDERS. RECTAL TUBE DC'D FOR SCANT OUTPUT, ATTENDS PLACED. GARCIA REMAINS IN PLACE, IRRIGATED FOR PATENCY. LE'S REMAIN COOL AND MOTTLED, MOTTLING SEEMS TO BE IMPROVING. PT DROWSY SINCE EXTUBATION, PRECEDEX DECREASED TO 0.5MCG. PT ABLE TO OPEN EYES AND ANSWER SIMPLE QUESTIONS, ASKS WHY HE IS HERE. FOLLOWS COMMANDS, MAKES NEEDS KNOWN. NOT USING CALL LIGHT, REMAINS COOPERATIVE. HEPARIN 14U, LEVOPHED 5MCG. R RADIAL ACCESS SITE AND R GROIN COOLING CATH SITE WNL, DRESSINGS CDI. WRIST IMMOBILIZER TO R WRIST IN PLACE, REPORT TO ONCOMING SHIFT.
[2020-02-14 04:07] LABS: BASOPHILS ABSOLUTE AUTO 0.04 K/mm3 (0.00-0.23); BASOPHILS PERCENT AUTO 0 % (0-2); EOSINOPHILS ABSOLUTE AUTO 0.17 K/mm3 (0.00-0.68); EOSINOPHILS PERCENT AUTO 1 % (0-6); Hematocrit 26.9 % (37.0-53.0); IMMATURE GRAN ABSOLUTE AUTO 0.09 K/mm3 (0.00-0.10); IMMATURE GRAN PERCENT AUTO 1 % (0-1); LYMPHOCYTES ABSOLUTE AUTO 2.16 K/mm3 (0.84-5.20); LYMPHOCYTES PERCENT AUTO 16 % (21-46); MONOCYTES ABSOLUTE AUTO 1.03 K/mm3 (0.16-1.47); MONOCYTES PERCENT AUTO 7 % (4-13); Mean Corpuscular HGB 32.1 pg (26.0-34.0); Mean Corpuscular HGB Conc 33.5 g/dL (31.5-36.5); Mean Corpuscular Volume 96 fL (80-100); Mean Platelet Volume 10.4 fL (9.1-12.4); NEUTROPHILS PERCENT AUTO 75 % (41-73); Platelet Count 191 K/mm3 (150-400); RDW Coefficient Variation 12.1 % (11.7-14.2); RDW Standard Deviation 42.7 fL (35.1-46.3); White Blood Cell Count 13.89 K/mm3 (4.00-11.30)
[2020-02-14 04:22] LABS: Anion Gap 5 mmol/L (6-16); Blood Urea Nitrogen 9 mg/dL (8-24); Bun/Creatinine Ratio 11.9 (12.0-20.0); CO2, Blood 26 mmol/L (21-32); Calcium, Blood 7.4 mg/dL (8.5-10.1); Chloride, Blood 104 mmol/L (98-108); Creatinine, Blood 0.76 mg/dL (0.60-1.20); Glomerular Filtration Rate >60 (60-); Glucose, Blood 101 mg/dL (70-99); Potassium, Blood 3.2 mmol/L (3.5-5.5); Sodium, Blood 135 mmol/L (136-145)
--- NOTE | 2020-02-14 05:51 | NUR ---
SHIFT SUMMARY PATIENT SLEPT WELL THROUGH NIGHT. WOKE UP A COUPLE OF TIMES, GAVE ATIVAN TO HELP GET BACK TO SLEEP. APPLIED OXYGEN TUBING MOST RECENT TIME SPO2 DROPPED TO ~ 87% AFTER FALLING INTO DEEP SLEEP. HAVE RECENTLY HAD SUCCESS PLACING LEVOPHED DRIP ON STANDBY, WILL CONTINUE TO MONITOR BP. ST SEGMENT REMAINS ELEVATED, NO C/O CHEST PAIN. DID COMPLAIN OF LOWER RIB PAIN EARLIER, RELIEVED WITH FENTANYL. WOKE UP ENOUGH TO PASS BEDSIDE SWALLOW EVALUATION, NO S/S OF ASPIRATION, TOLERATING WATER FINE. ASSESSMENT IS CHARTED. VSS. WILL CONTINUE TO MONITOR.
--- NOTE | 2020-02-14 07:37 | NUR ---
ASSUMED CARE THIS AM. PT. AWAKENS TO VERBAL STIMULI HOWEVER DROWSY. ANSWERS SOME QUESTIONS. BUT PRIMARILY SHAKE HEAD YES AND NO TO QUESITONS. PT. SHAKES HEAD NO TO PAIN THIS AM. REMAINS WARM TO TOUCH WITH TEMP OF 101.5 PER GARCIA TEMP PROBE. ICE PACKS PLACED TO SIDES. HR LOW 100S, CONTINUED ST ELEVATION NOTED. PER NOC SHIFT RN LEVOPHED GTT OFF AT 0500 THIS AM, PT MAINTAINS MAP >65. PT. RR 24, CURRENTLY ON 2LNC. PT SHAKES HEAD YES TO PRODUCTIVE COUGH, SUCTION AT BEDSIDE. PT. BT +, GARCIA IN PLACE DRAINING TO GRAVITY, RED CLOTS NOTED IN GARCIA TUBING. PT. CONTINUES WITH CENTRAL LINE TO RIGHT GROIN. PT. REMAINS MOTTLED TO FEET AND KNEES. PRECEDEX GTT TITRATED DOWN THIS AM; WILL CONTINUE TO TITRATE PER DR. SOLOMON. PT. REMAINS ON HEPARIN GTT. NADN THIS AM. CALL LIGHT IN REACH.
--- NOTE | 2020-02-14 11:12 | NUR ---
UPDATE CALL TO DR. POMPA TO CLARIFY HEPARIN ORDERS. PER DR. POMPA HEPARIN TO BE DCD. PT. AWAKENS TO ANSWER SOME QUESTIONS. PRECEDEX GTT REMAINS OFF. PT. ABLE TO TAKE SIPS OF WATER, NO COUGH WITH SWALLOW. PT ABLE TO CLEAR THROAT AND COUGH TO CLEAR THROAT ON COMMAND. PT. ABLE TO TAKE MEDS WITH APPLESAUCE BUT DENIES BEING HUNGRY OR WANTING TO EAT. VSS AT THIS TIME. CALL LIGHT IN REACH.
--- NOTE | 2020-02-14 15:10 | NUR ---
PT MORE AWAKE AND PARTICIPATING WITH CARE ABLE TO HELP WITH REPOSITION IN BED AND ASSIST WITH BATH. VERY WEAK AND SLOW MOVEMENTS. PT. CONTINUES TO TOLERATE WATER AND REQUESTED JELLO. PLANS FOR FULL LIQUID DIET AND ADVANCE TOLERATED.
--- NOTE | 2020-02-14 17:24 | NUR ---
SHIFT SUMMARY PT. MORE ALERT T/O DAY, PARTICIPATING IN CARE AND APPETITE RETURNING. PT. REPORTS BACK AND SHOULDER PAIN, MED WITH TYLENOL. PT. CURRENTLY ON RA. REMAINS OFF OF LEOVPHED AND PRECEDEX T/O SHIFT. NO ACUTE CHANGES T/O SHIFT. PLANS FOR PT/OT TOMORROW. REPORT TO ONCOMING RN.
[2020-02-15 05:47] LABS: BASOPHILS ABSOLUTE AUTO 0.03 K/mm3 (0.00-0.23); BASOPHILS PERCENT AUTO 0 % (0-2); EOSINOPHILS ABSOLUTE AUTO 0.19 K/mm3 (0.00-0.68); EOSINOPHILS PERCENT AUTO 2 % (0-6); Hematocrit 27.6 % (37.0-53.0); Hemoglobin 9.1 g/dL (13.5-17.5); IMMATURE GRAN ABSOLUTE AUTO 0.09 K/mm3 (0.00-0.10); IMMATURE GRAN PERCENT AUTO 1 % (0-1); LYMPHOCYTES ABSOLUTE AUTO 1.14 K/mm3 (0.84-5.20); LYMPHOCYTES PERCENT AUTO 10 % (21-46); MONOCYTES ABSOLUTE AUTO 0.98 K/mm3 (0.16-1.47); MONOCYTES PERCENT AUTO 9 % (4-13); Mean Corpuscular HGB 32.2 pg (26.0-34.0); Mean Corpuscular Volume 98 fL (80-100); Mean Platelet Volume 10.4 fL (9.1-12.4); NEUTROPHILS ABSOLUTE AUTO 9.15 K/mm3 (1.96-9.15); NEUTROPHILS PERCENT AUTO 79 % (41-73); Platelet Count 236 K/mm3 (150-400); RDW Standard Deviation 43.3 fL (35.1-46.3); Red Blood Cell Count 2.83 M/mm3 (4.30-5.90); White Blood Cell Count 11.58 K/mm3 (4.00-11.30)
[2020-02-15 05:59] LABS: Anion Gap 7 mmol/L (6-16); Blood Urea Nitrogen 8 mg/dL (8-24); Bun/Creatinine Ratio 13.4 (12.0-20.0); CO2, Blood 24 mmol/L (21-32); Calcium, Blood 7.5 mg/dL (8.5-10.1); Chloride, Blood 107 mmol/L (98-108); Glomerular Filtration Rate >60 (60-); Glucose, Blood 93 mg/dL (70-99); Potassium, Blood 3.4 mmol/L (3.5-5.5); Sodium, Blood 138 mmol/L (136-145)
--- NOTE | 2020-02-15 07:30 | NUR ---
ASSUMED CARE BEDSIDE REPORT RECIEVED. PT AWAKENS EASILY TO VERBAL STIMULI. PT IS ALERT AND ORIENTED WHEN AWAKE. PT IS RESTLESS IN BED AND APPEARS ANXIOUS. PT FOLLOWING SOME DIRECTIONS. PT COMPLAINS OF "HURTING EVERYWHERE" WHEN ASKED ABOUT PAIN. PT THEN QUICKLY FALLS BACK TO SLEEP WHEN NOT PROMPTED TO ANSWER QUESTIONS. VITAL SIGNS STABLE. PT ON ROOM AIR. ST ELEVATION NOTED. COOLING CATH TO RIGHT FEMORAL SITE IN PLACE WITH NS INFUSING AT 100 ML/HR AND NS TKO. RIGHT RADIAL ACCESS SITE C/D/I WITH OPSITE IN PLACE. GARCIA IN PLACE WITH YELLOW URINE OUTPUT NOTED. PT WITH ULCER/SCARRING TO LEFT SHOULDER. SEE PHOTO IN CHART. WILL CONTINUE TO MONITOR.
--- NOTE | 2020-02-15 07:44 | NUR ---
END OF SHIFT NOTE PATIENT RESTED FOR MOST OF THE SHIFT. HE DID WAKE UP AND FOLLOW COMMANDS APPROPRIETELY. HE WAS ABLE TO TURN HIMSELF IN BED INDEPENDENTLY. HE COMPLAINED OF GENERALIZED PAIN. TYLENOL AND MOTRIN GIVEN. FEBRILE. TMAX OF 102.3. [employer] UNIT OFFICER SHOWING NSR WITH ST ELEVATION. TACHYCARDIC WITH A RATE IN THE 100S-130S WHEN FEBRILE. BP STABLE WITH SOME MARGINAL BPS TONIGHT. LUNGS CLEAR AND DIM. TOLERATING ROOM AIR. TOLERATING CLEAR LIQUID DIET WELL. NO BM THIS SHIFT. PIV X 1. RIGHT FEMORAL CENTRAL IN PLACE. NS INFUSING AT 100 MLS/HR. POTASSIUM REPLACEMENT ORDERD FOR POTASSIUM OF 3.4.
--- NOTE | 2020-02-15 17:32 | NUR ---
SHIFT SUMMARY NO ACUTE CHANGES THIS SHIFT. PT HAS SLEPT OFF AND ON THROUGHOUT THE DAY. WHEN AWAKE, PT IS ALERT AND ORIENTED. PT HAS REMAINED CALM AND COOPERATIVE THROUGHOUT THE DAY. VITAL SIGNS HAVE REMAINED STABLE, PT ON ROOM AIR. PT TOLERATING PO DIET WELL. POWERGLIDE TO NISH PLACED WITH NS INFUSING AT 100 ML/HR. GARCIA REMAINS IN PLACE WITH GOOD AMOUNT OF YELLOW URINE OUTPUT NOTED. RIGHT RADIAL ACCESS SITE IS C/D/I, OPSITE IN PLACE. COOLING CATH LINE TO RIGHT FEMORAL SITE DC'D, OPSITE REMAINS IN PLACE AT SITE. PT REPOSITIONING SELF IN BED INDEPENDENTLY AND GOT UP TO THE CHAIR WITH OT TODAY. NO FAMILY PRESENT. WILL CONTINUE TO MONITOR AND REPORT OFF TO ONCOMING RN.
[2020-02-16 04:03] LABS: BASOPHILS ABSOLUTE AUTO 0.03 K/mm3 (0.00-0.23); BASOPHILS PERCENT AUTO 0 % (0-2); EOSINOPHILS ABSOLUTE AUTO 0.31 K/mm3 (0.00-0.68); EOSINOPHILS PERCENT AUTO 4 % (0-6); Hematocrit 26.3 % (37.0-53.0); Hemoglobin 8.8 g/dL (13.5-17.5); IMMATURE GRAN ABSOLUTE AUTO 0.09 K/mm3 (0.00-0.10); IMMATURE GRAN PERCENT AUTO 1 % (0-1); LYMPHOCYTES ABSOLUTE AUTO 1.64 K/mm3 (0.84-5.20); LYMPHOCYTES PERCENT AUTO 20 % (21-46); MONOCYTES ABSOLUTE AUTO 1.05 K/mm3 (0.16-1.47); MONOCYTES PERCENT AUTO 13 % (4-13); Mean Corpuscular HGB 32.5 pg (26.0-34.0); Mean Corpuscular HGB Conc 33.5 g/dL (31.5-36.5); Mean Corpuscular Volume 97 fL (80-100); NEUTROPHILS ABSOLUTE AUTO 5.03 K/mm3 (1.96-9.15); NEUTROPHILS PERCENT AUTO 62 % (41-73); Platelet Count 237 K/mm3 (150-400); RDW Coefficient Variation 12.1 % (11.7-14.2); RDW Standard Deviation 42.8 fL (35.1-46.3); Red Blood Cell Count 2.71 M/mm3 (4.30-5.90); White Blood Cell Count 8.15 K/mm3 (4.00-11.30)
[2020-02-16 04:23] LABS: Anion Gap 6 mmol/L (6-16); Blood Urea Nitrogen 8 mg/dL (8-24); Bun/Creatinine Ratio 9.8 (12.0-20.0); CO2, Blood 24 mmol/L (21-32); Calcium, Blood 7.4 mg/dL (8.5-10.1); Chloride, Blood 111 mmol/L (98-108); Creatinine, Blood 0.81 mg/dL (0.60-1.20); Glomerular Filtration Rate >60 (60-); Glucose, Blood 102 mg/dL (70-99); Magnesium, Blood 1.8 mg/dL (1.6-2.4); Potassium, Blood 3.5 mmol/L (3.5-5.5); Sodium, Blood 141 mmol/L (136-145)
--- NOTE | 2020-02-16 10:01 | NUR ---
AM NOTE... ASSUMED CARE OF PT APROX 0700, PT IS A&Ox4 BUT LETHARGIC, PT WAKES EASILY TO VERBAL STIMULI BUT FALLS BACK ASLEEP EASILY. PT IS CURRENTLY SINUS TACH WITH ST ELEVATION IN THE LOW 100'S. PT DENIES ANY CHEST PAIN/PRESSURE N/V OR INCREASED SOB. NO EDEMA NOTED ON ASSESSMENT. L/S COARSE IN THE UPPER LOBES DIM IN THE LOWER ON RA WITH O2 SATS >92%. BT PRESENT AND HYPOACTIVE ABD SOFT AND NONTENDER TO PALP. PT SAT UP IN THE BED INDEPENDENTLY AND ATE 100% OF HIS BREAKFAST, PT HAS BEEN SHIFTING HIMSELF AROUND THE BED SINCE THE START OF THIS SHIFT. CALL LIGHT IN REACH WILL CONTINUE TO MONITOR.
--- NOTE | 2020-02-16 17:33 | NUR ---
SHIFT SUMMARY... NO ACUTE NEGATIVE CHANGES NOTED THIS SHIFT. PT'S VS HAVE BEEN STABLE EXCEPT PT HAS BEEN FEBRILE THIS SHIFT WITH TMAX OF 101.1, PT HAS BEEN MEDICATED PER EMAR. PT DENIES ANY CHEST PAIN/PRESSURE N/V OR SOB. PT HAS WORKED WITH PT/OT THIS SHIFT AND WAS UP IN THE CHAIR FOR APROX 2 HOURS. PT ENCOURAGED TO GET UP FOR DINNER AND HE REFUSED. PT ALSO REFUSED BATH/SHOWER THIS SHIFT. GARCIA PATENT AND DRAINING CLEAR YELLOW URINE TO GRAVITY. CALL LIGHT IN REACH WILL CONTINUE TO MONITOR UNTIL REPORT IS GIVEN TO ONCOMING RN.
[2020-02-17 04:57] LABS: BASOPHILS ABSOLUTE AUTO 0.03 K/mm3 (0.00-0.23); BASOPHILS PERCENT AUTO 0 % (0-2); EOSINOPHILS ABSOLUTE AUTO 0.28 K/mm3 (0.00-0.68); EOSINOPHILS PERCENT AUTO 3 % (0-6); Hematocrit 27.2 % (37.0-53.0); Hemoglobin 9.2 g/dL (13.5-17.5); IMMATURE GRAN PERCENT AUTO 1 % (0-1); LYMPHOCYTES PERCENT AUTO 15 % (21-46); MONOCYTES ABSOLUTE AUTO 1.27 K/mm3 (0.16-1.47); MONOCYTES PERCENT AUTO 12 % (4-13); Mean Corpuscular HGB 32.3 pg (26.0-34.0); Mean Corpuscular HGB Conc 33.8 g/dL (31.5-36.5); Mean Corpuscular Volume 95 fL (80-100); Mean Platelet Volume 9.8 fL (9.1-12.4); NEUTROPHILS ABSOLUTE AUTO 7.21 K/mm3 (1.96-9.15); NEUTROPHILS PERCENT AUTO 69 % (41-73); Platelet Count 312 K/mm3 (150-400); RDW Standard Deviation 42.1 fL (35.1-46.3); Red Blood Cell Count 2.85 M/mm3 (4.30-5.90); White Blood Cell Count 10.49 K/mm3 (4.00-11.30)
--- NOTE | 2020-02-17 05:05 | NUR ---
overnight caregiver summary pt transferred from icu at beginning of shift. pt denies chest pain and chest pressure. pt gets tachypenic occasionally at rest. pt satting in the high 90's on room air. he denies chest pain each time. pt states he does get sob occasionally since this admission. this morning at 0420 pt HR sinus tach at [address] elevations. at this time pt didn't use call light and ambulated to the bathroom. sob with exertion. pt educated to use bedside commode next time and reminded to use call light. at 0450 pt's hr decreased to 115bpm. pt's lungs sound clear upon ascultation. RT Chuy Arce notified who has been following pt from ICU and more familar with pt's sitation. He expressed there were no acute changes to pt's status and suggested to use bedside commode to conserve pt's energy. 0516 pt currently in bed and sleeping. hr at 110 bpm.
[2020-02-17 05:12] LABS: Anion Gap 9 mmol/L (6-16); Blood Urea Nitrogen 12 mg/dL (8-24); CO2, Blood 22 mmol/L (21-32); Calcium, Blood 7.9 mg/dL (8.5-10.1); Chloride, Blood 107 mmol/L (98-108); Creatinine, Blood 0.86 mg/dL (0.60-1.20); Glomerular Filtration Rate >60 (60-); Glucose, Blood 103 mg/dL (70-99); Magnesium, Blood 1.8 mg/dL (1.6-2.4); Potassium, Blood 3.6 mmol/L (3.5-5.5); Sodium, Blood 138 mmol/L (136-145)
--- NOTE | 2020-02-17 17:00 | NUR ---
DISCHARGE INSTRUCTIONS COMPLETED AND DISCUSSED WITH PT EXPRESSING UNDERSTANDING. SCRIPTS FAXED TO [facility]. PT WAS TO HAVE LIFE VEST PLACED PRIOR TO DISCHARGE. BAG HANGER VISITED WITH PT ABOUT FINANCIAL COST OF EQUIPMENT AND NO INSURANCE COVERAGE. ACCORDING TO PT HE MAKES TOO MUCH MONEY FOR FINANCIAL ASSISTANCE BUT DOESN'T HAVE THE MONEY OR INSURANCE TO PAY FOR EQUIPMENT RENTAL. DR. BARBOSA AND DR. POMPA NOTIFIED OF PT NOT BEING ABLE TO COVER COST OF ITEM. PT STILL TO BE DISCHARGED. DID NOTIFY DR. BARBOSA OF CHANGE IN CARDIAC RHYTHM AFTER P.T. WAS COMPLETED THIS AFTERNOON. WHEN SPEAKING WITH PT ABOUT LIFE VEST NOT BEING AVAILABLE DUE TO COST PT STATED HE NEEDED TO GO HOME AND USE HIS PHONE TO CALL HIS COUSIN AND SEE IF HE COULD GET MONEY FOR PAY FOR THE ITEM. ENCOURAGED PT TO CALL CARDIOLOGY OFFICE IF HE IS ABLE TO COME UP WITH THE FINANCING FOR THE LIFE VEST IGGY. ALSO INSTRUCTED HIM TO TAKE IT EASY MONITER HIS TOLERATION OF ACTIVITY. TO CURB VIA W/C WITH FRIEND TAKING HIM HOME.
[2020-02-19] MEDS ORDERED: ATORVASTATIN CA40 MG PO (19:45)
[2020-02-19] MEDS ORDERED: CLOP75 PO (19:45)
[2020-02-19] MEDS ORDERED: ERIVEDGE150 MG PO (19:45)
[2020-02-19] MEDS ORDERED: Aspir 8181 MG PO (19:45)
[2020-02-19] MEDS ORDERED: POTCHL20ER PO (19:46)
[2020-02-19] MEDS ORDERED: ALBU90OI INH (19:46)
[2020-02-19] MEDS ORDERED: AMOCLA875 PO (19:46)
[2020-02-19] MEDS ORDERED: ACET325 PO (19:46)
[2020-02-19] MEDS ORDERED: Norco 5-325 Ta1 EACH PO (19:46)
[2020-02-19] MEDS ORDERED: FERSU300 PO (19:46)
[2020-02-19] MEDS ORDERED: FOLI1 PO (19:46)
[2020-02-19] MEDS ORDERED: MAGNESIUM OXID400 M1 PO (19:46)
[2020-02-19] MEDS ORDERED: B-1100 M1 PO (19:46)
[2020-02-19] MEDS ORDERED: TICA90TA PO (19:46)
[2020-02-19] MEDS ORDERED: IBUP400 PO (19:46)
[2020-02-19] MEDS ORDERED: ISODIN10 PO (19:46)
[2020-02-19] MEDS ORDERED: Acidophilus1 EAC1 PO (19:46)
[2020-02-19] MEDS ORDERED: Acerola C500 MG PO (19:46)
[2020-02-19] MEDS ORDERED: LISI5 PO (19:59)
[2020-02-20] MEDS ORDERED: LISI5 PO (11:50)
[2020-02-20] MEDS ORDERED: METO25ER PO (11:51)
== END 2020-02-17 17:07 | disposition home or self-care (01) | DRG 250 ==
LOC: ER 01:43 → ICUW 02:12 → MEDS 02-16 19:33
PROVIDERS: Emergency Medicine; Family Medicine; Internal Medicine; Internal Medicine Critical Care Medicine; Internal Medicine Interventional Cardiology; ADMIT Family Medicine
PROC: 0BH17EZ Insertion of Endotracheal Airway into Trachea, Via Natural or Artificial Opening (ICD-10-PCS; principal; 2020-02-11)
PROC: 02703ZZ Dilation of Coronary Artery, One Artery, Percutaneous Approach (ICD-10-PCS; 2020-02-11)
PROC: 5A1945Z Respiratory Ventilation, 24-96 Consecutive Hours (ICD-10-PCS; 2020-02-11)
PROC: 4A023N7 Measurement of Cardiac Sampling and Pressure, Left Heart, Percutaneous Approach (ICD-10-PCS; 2020-02-11)
PROC: 02C03ZZ Extirpation of Matter from Coronary Artery, One Artery, Percutaneous Approach (ICD-10-PCS; 2020-02-11)
PROC: B211YZZ Fluoroscopy of Multiple Coronary Arteries using Other Contrast (ICD-10-PCS; 2020-02-11)
DX: I49.01 Ventricular fibrillation (principal); J96.01 Acute respiratory failure with hypoxia; I21.3 ST elevation (STEMI) myocardial infarction of unspecified site; J69.0 Pneumonitis due to inhalation of food and vomit; I50.21 Acute systolic (congestive) heart failure; J98.11 Atelectasis; F15.93 Other stimulant use, unspecified with withdrawal; I13.0 Hypertensive heart and chronic kidney disease with heart failure and stage 1 through stage 4 chronic kidney disease, or unspecified chronic kidney disease; I42.7 Cardiomyopathy due to drug and external agent; T43.621A Poisoning by amphetamines, accidental (unintentional), initial encounter; C44.619 Basal cell carcinoma of skin of left upper limb, including shoulder; F10.20 Alcohol dependence, uncomplicated; D64.9 Anemia, unspecified; E87.6 Hypokalemia; F17.210 Nicotine dependence, cigarettes, uncomplicated; I25.10 Atherosclerotic heart disease of native coronary artery without angina pectoris; Z95.5 Presence of coronary angioplasty implant and graft; I45.81 Long QT syndrome; N18.9 Chronic kidney disease, unspecified; I46.2 Cardiac arrest due to underlying cardiac condition
CPT/HCPCS: 31500; 31720; 36415; 36556; 36600; 51700; 51702; 70450; 71045; 76937; 80047; 80048; 80053; 81001; 82803; 83735; 84484; 85014; 85025; 85347; 85610; 85730; 87040; 92920; 92953; 92978; 93005; 93010; 93454; 93458; 94002; 94003; 94640; 94760; 96374-59; 96375-59; 97110; 97112; 97116; 97162; 97166; 97530; 99152; 99153; 99291-25; A9270; A9270-GY; C1725; C1751; C1753; C1757; C1769; C1887; C1894; C8929; C9113; G0480; J0295; J0696; J1644; J1650; J2060; J2250; J2704; J3010; J3411; J3480; J7030; J7040; J7050; J7060; J7120; Q9957; Q9967

== ENCOUNTER 2020-02-21 17:53 | Inpatient (IN) | payer SELFPAY ==
[~2020-02-21] VITALS: Ht 177.8 cm; Wt 79.2 kg
[~2020-02-21 17:53] MED LIST changes: +ACET325 PO; +ALBU90OI INH; +AMOCLA875 PO; +ATORVASTATIN CA40 MG PO; +Acerola C500 MG PO; +Acidophilus1 EAC1 PO; +Aspir 8181 MG PO; +B-1100 M1 PO; +CLOP75 PO; +ERIVEDGE150 MG PO; +FERSU300 PO; +FOLI1 PO; +IBUP400 PO; +ISODIN10 PO; +LISI5 PO; +MAGNESIUM OXID400 M1 PO; +METO25ER PO; +Norco 5-325 Ta1 EACH PO; +POTCHL20ER PO; +TICA90TA PO
[2020-02-21 18:43] LABS: Hematocrit 30.7 % (37.0-53.0); Hemoglobin 9.7 g/dL (13.5-17.5); Mean Corpuscular HGB 31.9 pg (26.0-34.0); Mean Corpuscular HGB Conc 31.6 g/dL (31.5-36.5); Mean Corpuscular Volume 101 fL (80-100); Mean Platelet Volume 9.9 fL (9.1-12.4); NRBC ABSOLUTE 0.02 K/mm3 (0.00-0.02); NRBC Auto 0.1 /100 WBC (0.0-0.2); Platelet Count 719 K/mm3 (150-400); RDW Coefficient Variation 12.6 % (11.7-14.2); RDW Standard Deviation 47.2 fL (35.1-46.3); Red Blood Cell Count 3.04 M/mm3 (4.30-5.90); White Blood Cell Count 22.42 K/mm3 (4.00-11.30)
[2020-02-21 18:49] LABS: Alanine Aminotransfer (ALT/SGP 77 U/L (12-78); Albumin, Blood 2.5 g/dL (3.4-5.0); Albumin/Globulin Ratio 0.6 (0.8-1.8); Alk Phos 218 U/L (50-136); Anion Gap 19 mmol/L (6-16); Aspartate Aminotrans (AST/SGOT 81 U/L (12-37); Bilirubin, Total 0.4 mg/dL (0.1-1.0); Blood Urea Nitrogen 10 mg/dL (8-24); Bun/Creatinine Ratio 9.8 (12.0-20.0); CO2, Blood 16 mmol/L (21-32); Calcium, Blood 8.7 mg/dL (8.5-10.1); Chloride, Blood 102 mmol/L (98-108); Creatinine, Blood 1.02 mg/dL (0.60-1.20); Glomerular Filtration Rate >60 (60-); Glucose, Blood 279 mg/dL (70-99); Magnesium, Blood 2.6 mg/dL (1.6-2.4); Potassium, Blood 3.5 mmol/L (3.5-5.5); Sodium, Blood 137 mmol/L (136-145); Total Protein, Blood 6.5 g/dL (6.4-8.2)
[2020-02-21 18:54] LABS: BASOPHILS ABSOLUTE MAN 0.22 K/mm3 (0.00-0.23); BASOPHILS PERCENT MAN 1 % (0-2); EOSINOPHILS PERCENT MAN 0 % (0-6); LYMPHOCYTES ABSOLUTE MAN 3.13 K/mm3 (0.84-5.20); LYMPHOCYTES PERCENT MAN 14 % (21-46); MONOCYTES ABSOLUTE MAN 0.67 K/mm3 (0.16-1.47); MONOCYTES PERCENT MAN 3 % (4-13); NEUTROPHILS ABSOLUTE MAN 18.38 K/mm3 (1.96-9.15); SEG NEUTROPHILS PERCENT MAN 82 % (41-73); TOTAL CELLS COUNTED 100
[2020-02-21 20:19] LABS: International Normalized Ratio 1.04; Prothrombin Time Results 11.1 Sec (9.7-11.5)
--- NOTE | 2020-02-21 22:58 | NUR ---
ADMIT ASSESSMENT PT ARRIVED ON GURNERY FROM ER. SLIDER SHEET TX TO ICU BED. PT C/O EXTREME STERNUM PAIN DURING TX TO ICU BED. ADVISED PT TO USE PILLOWS TO BRACE THE STERNUM DURIN MOVEMENT AND COUGHING. ADMIT FOR POST CARDIAC ARREST CARE. A&OX4. MULTIPLE ABRASIONS ON PT FROM COLLAPSING ONTO THE FLOOR. SMALL ABRASION ON LEFT POSTERIOR HEAD, LEFT EYEBROW, LEFT CHEEK, LEFT SHOULDER OVER CANCER WOUND, AND R KNUCKLE. BRUISING ON L ABD FROM PREVIOUS LOVENOX INJECTION, SEE PHOTOS IN CHART FOR ALL WOUNDS. SCATTERED BRUISES AND SMALLER ABRASIONS T/O BODY. LS CLEAR UPPER/MIDS, R LOWER COARSE. PT TAKING SMALL, QUICK SHALLOW RESPIRATIONS DUE TO STERNAL PAIN, ON 4LPM VIA NC c O2 SATS >90%. NS-ST ON THE MONITOR, ST ELEVATION NOTED FROM PRIOR DE. AMIO GTT @ 1MG/MIN, WILL TITRATE AT APPROPRIATE INTERVALS. 18GA IV RAC c AMIO, 20 R WRIST FLUSHED, LOC.
--- NOTE | 2020-02-22 00:24 | NUR ---
DR BARRAGAN NOTIFIED OF CONTINUED STERNAL PAIN. SEE NEW MED ORDERS. PAIN DOWN FROM 8/10 TO 6/10 AFTER PO OXY.
--- NOTE | 2020-02-22 05:44 | NUR ---
SHIFT SUMMARY NO SIGNIFICANT CHANGES SINCE ADMIT. PT RESTED MOST THE NIGHT WHILE REMAINING HYPOTENSIVE. AMIO GTT @0.5MG/MIN. STERNAL CP CONTINUED, APPEARS TO HAVE BETTER PAIN CONTROL c OXYCODONE. CARDIOLOGY CONSULT SCHEDULED FOR TODAY. WILL CONTINUE TO MONITOR.
--- NOTE | 2020-02-22 07:35 | NUR ---
Received report Nydia LEIJA. Patient supine in bed with HOB at 30 degrees. He is awake and alert and oriented and is able to communicate his needs although slow to respond. He is on 4L O2 via NC and sats 96%. He has 18ga IV in RAC dressing intact and site WNL's and is infusing Amiodarone at 0.5 mg/min. He also has 20ga IV in RW dressing intact and site WNL's and is infusing NS TKO. He callls for help to use izaguirre and chest pain from CPR limits leaning over. He is afebrilew at 98.0 degrees. HR 101, BP 87/59 with MAP 71 r/t recent pain medication. 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 Calll natan within reach.
--- NOTE | 2020-02-22 08:00 | NUR ---
Recieved report from Jorge LEIJA. Patient sleeping with BIPAP in place at 18/8 and 40% and sats 96%. She awakens to verbal and falls back to sleep. She is on Nitro gtt at 30 mcg/min with systolics 140's and HR 80-90's, SCOTT but weak.
[2020-02-22 09:06] LABS: Magnesium, Blood 1.7 mg/dL (1.6-2.4)
[2020-02-22 09:15] LABS: Anion Gap 7 mmol/L (6-16); Blood Urea Nitrogen 11 mg/dL (8-24); Bun/Creatinine Ratio 12.4 (12.0-20.0); CO2, Blood 24 mmol/L (21-32); Calcium, Blood 6.7 mg/dL (8.5-10.1); Chloride, Blood 104 mmol/L (98-108); Creatinine, Blood 0.89 mg/dL (0.60-1.20); Glomerular Filtration Rate >60 (60-); Glucose, Blood 171 mg/dL (70-99); Phosphorus, Blood 2.8 mg/dL (2.5-4.9); Potassium, Blood 3.4 mmol/L (3.5-5.5); Sodium, Blood 135 mmol/L (136-145)
--- NOTE | 2020-02-22 09:26 | NUR ---
Echocardiogram completed.
--- NOTE | 2020-02-22 09:30 | NUR ---
Dr Angeles by to assess patient and ordered CT of head r/t fall, and partial ECHO and EKG, all have been done. Patient was medicated for pain per MAR prior to CT. Amiodarone continues at 0.5 mg/min and NS TKO. Patient tolerated PO meds well. Dr Corcoran has been back to check results. VSS, See EMR. Patient denies no other c=urrent needs.
[2020-02-22 09:31] LABS: CHOL/HDL RATIO 3.7; Cholesterol 100 mg/dL (50-200); HDL Cholesterol 27 mg/dL (>39); LDL/HDL RATIO 1.9; Low Density Lipoprotein Chol 52 mg/dL (0-110); Triglycerides 104 mg/dL (30-160); Very Low Density Lipoprot Chol 20 mg/dL (6-32)
--- NOTE | 2020-02-22 11:33 | NUR ---
Patient tolerated late breakfast well. He continues to have chest pain intermitently with movement. Son called with concerns of patient leaving without some device and explained current options and patient refused life vest and awaiting decsion of inplanted device. VSS. Amiodarone remains at 0.5 mg/min and NS TKO.
[2020-02-22 14:09] LABS: U Amphetamine Screen Not Detected; U Barbituate Screen Not Detected; U Benzodiazapine Screen Not Detected; U Buprenorphine Screen Not Detected; U Cannabinoids Screen Not Detected; U Cocaine Screen Not Detected; U Methadone Screen Not Detected; U Methamphetamine Screen Not Detected; U Opiates Screen Not Detected; U Oxycodone Screen DETECTED; U Phencyclidine Screen Not Detected; U Propoxyphene Screen Not Detected
--- NOTE | 2020-02-22 14:17 | NUR ---
Patient resting post medicating for pain in chest post CPR. Had Dr Noyola talk with son and he is coming in to help patient fill out paperwork. Amiodarone continues at 0.5 mg/min and he remains in SR. He tolertaed lunchg well. VSS. See EMR. Assisted with urinal and had 700 ml light adam urine out and sent sample.
[2020-02-22 15:57] LABS: Alanine Aminotransfer (ALT/SGP 51 U/L (12-78); Albumin, Blood 2.1 g/dL (3.4-5.0); Albumin/Globulin Ratio 0.5 (0.8-1.8); Alk Phos 154 U/L (50-136); Anion Gap 7 mmol/L (6-16); Aspartate Aminotrans (AST/SGOT 36 U/L (12-37); Bilirubin, Total 0.3 mg/dL (0.1-1.0); Blood Urea Nitrogen 12 mg/dL (8-24); Bun/Creatinine Ratio 12.3 (12.0-20.0); CO2, Blood 25 mmol/L (21-32); Calcium, Blood 7.8 mg/dL (8.5-10.1); Chloride, Blood 96 mmol/L (98-108); Creatinine, Blood 0.97 mg/dL (0.60-1.20); Glomerular Filtration Rate >60 (60-); Glucose, Blood 232 mg/dL (70-99); Magnesium, Blood 2.1 mg/dL (1.6-2.4); Phosphorus, Blood 3.2 mg/dL (2.5-4.9); Sodium, Blood 128 mmol/L (136-145); Total Protein, Blood 6.1 g/dL (6.4-8.2)
[2020-02-22 17:03] LABS: PO2 Arterial 76.6 mmHg (80-100); pH Blood Arterial <6.80 (7.35-7.45)
--- NOTE | 2020-02-22 17:31 | NUR ---
Present throughout multiple codes on Eleuterio this afternoon. Son present and very guarded and angry. Pt's sister arrived and appeared to be a calming presence. At sister's urging, son (Gera) made decision to stop CPR. He left immediately after. Staff did an amazing job trying to save Eleuterio's life.
--- NOTE | 2020-02-22 17:37 | NUR ---
1446-Patient went into v-tach and ran in room and hooked up monitor called Dr Infante and we shocked patient at 150 joules and patient returned to ST 113 and BP 119/73 MAP 88. RT placed on 9L O2 via NRM >90%. 1454-Dr Corcoran present and started on Amiodarone bolus, 15L O2 via NRM and sats 92% 103/72 MAP 88 1510- Patient went into V-tach, shocked 200 joules ROSC 125/76 MAP 104 92% NRM 1520-son arrived and was at door of room during second round 1530-Patient started tonic clonic and sedated with propofol gtt and he was sedated. 1541- Dr Infante intubated 8.0 ET, 26 cm at lips, + sound bilateral, vent setting AC16, TV 450, FiO2 70%, PEEP 5.0 and sats >90%. 1545-16Fr Temp Mendoza placed, and OG with bile output. 1600 see code sheet for meds and VS 1705 son called code and Dr Noyola and Dr Infante requested we stopped. 1730- Son returned and took possesion of his wallet and only credit cards and ID's were in wallet, Helpped with finding mortuary and son and patients sister left. I asked if they had any questions and reviewed every thing we did and what Leobardo had done and they seemed very satisfied. They thanked staff for their hard work. They reqiuested [place] mortuary and power press supervisor would call ME and and do final discharge
== END 2020-02-22 19:20 ==
LOC: ER 17:53 → ICUW 17:54
PROVIDERS: Emergency Medicine; Family Medicine; Internal Medicine Cardiovascular Disease; Internal Medicine Critical Care Medicine; ADMIT Internal Medicine
PROC: 5A12012 Performance of Cardiac Output, Single, Manual (ICD-10-PCS; principal; 2020-02-22)
PROC: 0BH18EZ Insertion of Endotracheal Airway into Trachea, Via Natural or Artificial Opening Endoscopic (ICD-10-PCS; 2020-02-22)
PROC: 5A1935Z Respiratory Ventilation, Less than 24 Consecutive Hours (ICD-10-PCS; 2020-02-22)
PROC: 06HM33Z Insertion of Infusion Device into Right Femoral Vein, Percutaneous Approach (ICD-10-PCS; 2020-02-22)
PROC: 5A2204Z Restoration of Cardiac Rhythm, Single (ICD-10-PCS; 2020-02-22)
DX: I49.01 Ventricular fibrillation (principal); I21.4 Non-ST elevation (NSTEMI) myocardial infarction; J69.0 Pneumonitis due to inhalation of food and vomit; S27.329A Contusion of lung, unspecified, initial encounter; R65.10 Systemic inflammatory response syndrome (SIRS) of non-infectious origin without acute organ dysfunction; I47.2 Ventricular tachycardia; I42.7 Cardiomyopathy due to drug and external agent; I46.2 Cardiac arrest due to underlying cardiac condition; Z87.891 Personal history of nicotine dependence; Z79.82 Long term (current) use of aspirin; F15.10 Other stimulant abuse, uncomplicated; I25.10 Atherosclerotic heart disease of native coronary artery without angina pectoris; E78.5 Hyperlipidemia, unspecified; I25.2 Old myocardial infarction; G40.409 Other generalized epilepsy and epileptic syndromes, not intractable, without status epilepticus; R00.1 Bradycardia, unspecified; I44.2 Atrioventricular block, complete; Z95.5 Presence of coronary angioplasty implant and graft
CPT/HCPCS: 31500; 31720; 36556; 36600; 51702; 70450; 71045; 80053; 80061; 80069; 82803; 83735; 83880; 84100; 84145; 84484; 85025; 85610; 85730; 93005; 93010; 94002; 96365; 96366; 96367; 96368; 96372; 96375; 99285-25; A9270; A9270-GY; C8929; G0378; G0480; J0282; J0461; J0696; J1265; J1650; J2001; J2060; J2405; J2543; J2704; J3010; J3370; J7040; J7050; J7060; Q9957